=== PATIENT | female | born 1990 | race Caucasian/White ===

== ENCOUNTER 2017-04-26 12:14 | Emergency (ER) | payer MEDICAID ==
[~2017-04-26] VITALS: Ht 157.5 cm; Wt 55.0 kg
[~2017-04-26 12:14] MED LIST: ALBU6.7H INH; BACT800T5 PO; MEDR4PAK3 PO
[2017-04-26 12:40] VITALS: BP 142/81; PULSE 97; RESP 15; TEMP 98.4; O2SAT 98
[2017-04-26] MEDS ORDERED: EXCETAB30 PO (13:09)
[2017-04-26] MEDS ORDERED: SODIUM CHLOR 0.9% 1000 ML INJ 1,000 ML IV ONE (13:30)
[2017-04-26] MEDS ORDERED: SODIUM CHLORIDE 0.9% FLUSH 10 ML FLUSH IVF PRN (13:30)
[2017-04-26] MEDS ORDERED: PROCHLORPERAZINE INJ 10 MG/2 ML VIAL IVP ONE (13:30)
--- NOTE | 2017-04-26 13:30 | PD ---
HPI Chief Complaint: Headache Time Seen by Provider: 13:14 Travel History International Travel<30 days: No Contact w/Intl Traveler<30days: No Traveled to known affect area: No History of Present Illness HPI 26-year-old female came to the emergency room with history of headache mostly on the right side for past 4-5 days. Patient says she has history of migraines but this headache has been a different quality and also lasted much longer than her usual migraines. She says the headache comes and goes and when it comes it in as sharp form radiating down the right side of her head and face. Both her ear started to hurt. She also could hear some ringing sensation and then soon it goes away and she feels tired afterwards. No history of nausea vomiting. Today she took a pill of Excedrin Migraine but her boss had offered. She finally decided to come to the emergency room. Patient has been in this ER several times in the past but has not had a head CT done. Upon asking she said she has also been to [facility] but not sure if they did a CAT scan of her head there. She is awake and answering questions appropriately. Vital signs are stable. Patient also says that one week ago she lost her balance and fell backward and smacked her head real hard. She didn't lose consciousness. [facility] Past Medical History Narrative Medical List of her past medical, surgical, social and family history is reviewed from the nursing note. Asthma: Yes Diminished Hearing: No Gastrointestinal Disorders: Yes (GB DISEASE) Immunizations Current: No Migraines: Yes ?: Not LMP: 04/21/17 : 5 Para: 4 Miscarriage: 1 : 0 Ovarian Cysts: Yes (R ) Dilation and Curettage (D&C): Yes Tubal Ligation: Yes Past Surgical History Section: Yes (X 4) Cholecystectomy: Yes Social History Alcohol Use: No (STATES QUIT 2014) Tobacco Use: Yes (1 PPD) Substance Use: Yes (MARIJUANA DAILY) Allergies-Medications (Allergen,Severity, Reaction): Coded Allergies: amoxicillin (Unverified Allergy, Severe, anphylaxis, 04/26/17) penicillin G (Unverified Allergy, Severe, Anaphylaxis, 04/26/17) strawberry (Unverified Allergy, Intermediate, 04/26/17) throat swelling, difficult breathing Comments List of her allergies reviewed from the nursing note. Reported Meds & Prescriptions Reported Meds & Active Scripts Active Reported Excedrin Migraine Caplet (Aspirin/Acetaminophen/Caffeine) 250 Mg-250 Mg-65 Mg Tablet 2 Cap PO Narrative Medication List of her home medications reviewed from the nursing note. Review of Systems Except as stated in HPI: all other systems reviewed are Neg HENT: Positive: Earache Neurologic: Positive: Headache Physical Exam Narrative GENERAL: Awake, alert, mild distress SKIN: Focused skin assessment warm/dry. HEAD: Atraumatic. Normocephalic. EYES: Pupils equal and round. No scleral icterus. No injection or drainage. ENT: No nasal bleeding or discharge. Mucous membranes pink and moist. Bilateral TMs appear to have good light reflex, pale-colored NECK: Trachea midline. No JVD. CARDIOVASCULAR: Regular rate and rhythm. No murmur appreciated. RESPIRATORY: No accessory muscle use. Clear to auscultation. Breath sounds equal bilaterally. GASTROINTESTINAL: Abdomen soft, non-tender, nondistended. Hepatic and splenic margins not palpable. MUSCULOSKELETAL: No obvious deformities. No clubbing. No cyanosis. No edema. NEUROLOGICAL: Awake and alert. No obvious cranial nerve deficits. Motor grossly within normal limits. Normal speech. PSYCHIATRIC: Appropriate mood and affect; insight and judgment normal. Data Data Last Documented VS Orders Orders Complete Blood Count With Diff (04/26/17 13:30) Basic Metabolic Panel (Bmp) (04/26/17 13:30) Ct Brain W/O Iv Contrast(Rout) (04/26/17 13:30) Ecg Monitoring (04/26/17 13:30) Iv Access Insert/Monitor (04/26/17 13:30) Oximetry (04/26/17 13:30) Sodium Chloride 0.9% Flush (Ns Flush) (04/26/17 13:30) Prochlorperazine Inj (Compazine Inj) (04/26/17 13:30) Sodium Chlor 0.9% 1000 Ml Inj (Ns 1000 M (04/26/17 13:30) Potassium Chloride Eff (K-Lyte Cl Eff) (04/26/17 14:30) Ed Discharge Order (04/26/17 14:34) Labs Laboratory Tests Test 04/26/17 13:20 White Blood Count 5.2 TH/MM3 Red Blood Count 4.35 MIL/MM3 Hemoglobin 13.1 GM/DL Hematocrit 38.1 % Mean Corpuscular Volume 87.6 FL Mean Corpuscular Hemoglobin 30.1 PG Mean Corpuscular Hemoglobin Concent 34.4 % Red Cell Distribution Width 13.5 % Platelet Count 223 TH/MM3 Mean Platelet Volume 7.5 FL Neutrophils (%) (Auto) 55.0 % Lymphocytes (%) (Auto) 36.1 % Monocytes (%) (Auto) 5.8 % Eosinophils (%) (Auto) 2.7 % Basophils (%) (Auto) 0.4 % Neutrophils # (Auto) 2.9 TH/MM3 Lymphocytes # (Auto) 1.9 TH/MM3 Monocytes # (Auto) 0.3 TH/MM3 Eosinophils # (Auto) 0.1 TH/MM3 Basophils # (Auto) 0.0 TH/MM3 CBC Comment DIFF FINAL Differential Comment Blood Urea Nitrogen 7 MG/DL Creatinine 0.73 MG/DL Random Glucose 88 MG/DL Calcium Level 8.5 MG/DL Sodium Level 140 MEQ/L Potassium Level 3.4 MEQ/L Chloride Level 108 MEQ/L Carbon Dioxide Level 24.7 MEQ/L Anion Gap 7 MEQ/L Estimat Glomerular Filtration Rate 97 ML/MIN [facility] Medical Decision Making Medical Screen Exam Complete: Yes Emergency Medical Condition: Yes Medical Record Reviewed: Yes Differential Diagnosis Status migrainous, postconcussive headache, intracranial Narrative Course 2:32 PM blood test results are back. Her potassium is mildly depleted. I've given her by mouth potassium. CT scan of her head was negative. Patient was given IV fluid and IV Compazine. Upon reassessment she says her headache feels better. I am comfortable discharging her home at this point. Procedures EKG Prior to Arrival: No Diagnosis Primary Impression: Migraine with status migrainosus Qualified Codes: G43.111 - Migraine with aura, intractable, with status migrainosus Referrals: Primary Care Physician 3 days Additional Instructions: Please return to the ER if the condition worsens or any other new concerns. Otherwise drink lots of fluids to keep yourself well-hydrated. Coffee or caffeinated beverages would help. Stay away from alcohol especially wine and chocolate since they tend to worsen migraines. Tried to give your eyes and brain some rest by not watching TV, Smart phone for computers. Try to get sleep and rest. Follow-up with your primary care. Med/Other Pt SpecificInfo: No Change to Meds Disposition: 01 DISCHARGE HOME Condition: Stable Arelis Wilson MD Apr 26, 2017 13:30
[2017-04-26 13:50] VITALS: PULSE 70; RESP 15; O2SAT 95
[2017-04-26 14:08] LABS: AUTOMATED NEUTROPHIL # 2.9 TH/MM3 (1.8-7.7); BASOPHIL % 0.4 % (0.0-2.0); EOSINOPHIL # 0.1 TH/MM3 (0-0.4); EOSINOPHIL % 2.7 % (0.0-4.0); HEMATOCRIT 38.1 % (35.0-46.0); HEMO FLAGS DIFF FINAL; LYMPH % 36.1 % (9.0-44.0); LYMPHOCYTE # 1.9 TH/MM3 (1.0-4.8); MEAN CELL VOLUME 87.6 FL (80.0-100.0); MEAN CORPUSCULAR HEMOGLOBIN 30.1 PG (27.0-34.0); MEAN CORPUSCULAR HGB CONC 34.4 % (32.0-36.0); MONO % 5.8 % (0.0-8.0); PLATELET COUNT 223 TH/MM3 (150-450); RED BLOOD COUNT 4.35 MIL/MM3 (4.00-5.30); RED CELL DISTRIBUTION WIDTH 13.5 % (11.6-17.2); WHITE BLOOD COUNT 5.2 TH/MM3 (4.0-11.0)
--- NOTE | 2017-04-26 14:15 | RADRPT ---
EXAM DATE/TIME: 04/26/2017 13:54 [facility] COMPARISON: No previous studies available for comparison. INDICATIONS : Sharp pain in head with nausea and vomiting. RADIATION DOSE: 56.35 CTDIvol (mGy) MEDICAL HISTORY : Asthma. SURGICAL HISTORY : Cholecystectomy. section.Tubal ligation. ENCOUNTER: Initial ACUITY: 4 - 6 days PAIN SCALE: 5/10 LOCATION: Bilateral temporal TECHNIQUE: Multiple contiguous axial images were obtained of the head. Using automated exposure control and adj ustment of the mA and/or kV according to patient size, radiation dose was kept as low as reasonably a chievable to obtain optimal diagnostic quality images. DICOM format image data is available electro nically for review and comparison. FINDINGS: CEREBRUM: The ventricles are normal for age. No evidence of midline shift, mass lesion, hemorrhage or acute in farction. No extra-axial fluid collections are seen. POSTERIOR FOSSA: The cerebellum and brainstem are intact. The 4th ventricle is midline. The cerebellopontine angle i s unremarkable. EXTRACRANIAL: The visualized portion of the orbits is intact. SKULL: The calvaria is intact. No evidence of skull fracture. CONCLUSION: Normal examination for a patient of this age. Manoj Maloney MD on April 26, 2017 at 14:13 Board Certified Radiologist. This report was verified electronically.
[2017-04-26 14:25] LABS: BICARBONATE 24.7 MEQ/L (21.0-32.0); POTASSIUM 3.4 MEQ/L (3.5-5.1)
[2017-04-26] MEDS ORDERED: POTASSIUM CHLORIDE 25 MEQ EFFERVESCENT TAB PO ONE (14:30)
== END 2017-04-26 14:57 | disposition home or self-care (01) ==
LOC: NEPE 12:14
DX: G43.111 Migraine with aura, intractable, with status migrainosus (principal); F17.200 Nicotine dependence, unspecified, uncomplicated
CPT/HCPCS: 70450; 80048; 85025; 96361; 96374; 99285; J0780; J7030